=== PATIENT | male | born 1985 | race Caucasian/White ===

== ENCOUNTER 2020-02-08 08:57 | Emergency (ER) | payer SELFPAY ==
[2020-02-08 09:08] VITALS: BP 143/87; PULSE 93; RESP 18; TEMP 37.3; O2SAT 96; BMI 45.1
--- NOTE | 2020-02-08 09:08 | ECG_ITS ---
Test Reason : CHESTPAIN Blood Pressure : / mmHG Vent. Rate : 081 BPM Atrial Rate : 081 BPM P-R Int : 146 ms QRS Dur : 096 ms QT Int : 372 ms P-R-T Axes : 031 037 037 degrees QTc Int : 432 ms Normal sinus rhythm Normal ECG No previous ECGs available Referred By: Judie Ybarra Electronically Signed By:SALIMA CERVANTES MD
--- NOTE | 2020-02-08 09:08 | XR_ITS ---
EXAMINATION: XR CHEST CLINICAL INFORMATION: Pain COMPARISON: None TECHNIQUE: Frontal view of the chest was obtained. FINDINGS: The cardiac and mediastinal contours are normal. There is slight elevation of the right hemidiaphragm. The lungs are clear. There is no pleural effusion or pneumothorax. Bony structures are unremarkable. XR/XR chest 1V IMPRESSION: Elevated right hemidiaphragm. Otherwise unremarkable exam.
--- NOTE | 2020-02-08 09:10 | ED_ITS ---
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) Pain location: left chest Pain radiation: none Severity: moderate Quality: tightness Relieving factors: nothing Exacerbating factors: movement Associated symptoms: diaphoresis Treatment prior to arrival: none Related Data Previous Rx's Medication Instructions Recorded alcohol swabs [Alcohol Pads] 1 pad TOPICAL TID #200 ea 02/08/20 blood sugar diagnostic [FreeStyle #10 ea 02/08/20 Lite Strips] blood-glucose meter [FreeStyle #1 ea 02/08/20 Lite Meter] lancets [FreeStyle Lancets] #100 ea 02/08/20 metformin 500 mg PO BID #60 tab 02/08/20 Allergies Allergy/AdvReac Type Severity Reaction Status Date / Time No Known Allergies Allergy Verified 02/08/20 09:07 Review of Systems Review of Systems: Constitutional : No Weight loss, No Fever, No Chills, pos sweats ENT/Mouth : No sore throat, No Rhinorrhea Eyes: No Eye Pain, No Swelling Cardiovascular : pos Chest Pain, no SOB, no Dyspnea on Exertion, No Orthopnea, No Edema, No Palpitations Respiratory : No Cough, No Sputum Gastrointestinal : no Nausea, No Vomiting, No Diarrhea, No abdominal Pain, No Hematochezia, No Melena Genitourinary : No Dysuria, No Urinary Frequency Musculoskeletal : No joint pain, No Myalgias, No Joint Swelling Skin : No Skin Lesions, No rash Neuro : No Weakness, No Numbness, No Dizziness, No Headache Psych : No Anxiety/Panic, No Depression Heme/Lymph: No Bruising, No Lymphadenopathy Endocrine : No Polyuria, No Polydipsia All other systems reviewed and are negative [facility] Past Medical History Attestation statement: The following information was validated with the patient. Medical History (Updated 02/08/20 @ 13:00 by Judie Ybarra DO) No active medical problems Social History Social History (Updated 02/08/20 @ 09:10 by Judie Ybarra DO) Alcohol intake: never Smoking Status: Current every day smoker Use of substances other than those prescribed or required for medical reasons: Yes Substance Use Type: Marijuana Substance Use Frequency: Daily Advance Directives: No Advance Directives Information Provided: No Physical Exam Vital Signs: Vital Signs: Last Vital Signs Temp 98.3 F 02/08/20 11:19 Pulse 77 02/08/20 11:19 Resp 20 02/08/20 11:19 BP 155/85 H 02/08/20 11:19 Pulse Ox 97 02/08/20 11:19 Body Mass Index 45.1 Appearance: Alert. Oriented X3. No acute distress. Eyes: Pupils equal, round and reactive to light. ENT: Pharynx normal. Neck: Normal inspection. Neck supple. CVS: Normal heart rate and rhythm. Pulses normal. Respiratory: No respiratory distress. Breath sounds normal. Abdomen: Soft and nontender. Skin: Skin warm and dry. Normal skin color. Normal skin turgor. Extremities: No lower extremity edema. No calf ttp Neuro: Oriented X 3. No motor deficit. No sensory deficit. 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 Lab Data Result diagrams: 02/08/20 09:29 02/08/20 09:29 Labs: Lab Results 02/08/20 02/08/20 02/08/20 Range/Units 09:29 09:29 09:29 WBC 10.7 (4.8-10.8) X10*3/uL RBC 5.42 (4.60-5.80) X10*6/uL Hgb 15.7 (14.0-18.0) g/dl Hct 46.9 (42-52) % MCV 86.5 (80-98) fL MCH 29.0 (27.0-33.0) pg MCHC 33.5 (31.0-36.0) g/dl RDW 12.3 (11.0-16.0) % Plt Count 350 (160-400) X10*3/uL MPV 9.9 (9.4-12.4) fL Immature Gran % (Auto) 0.4 (0.0-0.4) % Neut % (Auto) 77.1 H (45-73) % Lymph % (Auto) 17.7 L (20-40) % [place] % (Auto) 3.5 (2-11) % Eos % (Auto) 0.7 (0-4) % Baso % (Auto) 0.6 (0-2) % Lymph # (Auto) 1.9 (1.2-4.9) X10*3/uL [place] # (Auto) 0.4 (0.1-1.2) X10*3/uL Eos # (Auto) 0.1 (0.0-0.4) X10*3/uL Baso # (Auto) 0.1 (0.0-0.2) X10*3/uL Abs Immat Gran (auto) 0.04 H (0.00-0.03) X10*3/uL Absolute Neuts (auto) 8.3 (2.0-8.3) X10*3/uL Absolute Nucleated RBC 0.000 (0.0-0.012) X10*3/uL Nucleated RBC % (auto) 0.0 (0.0-0.2) /100WBC Hold Blue Top Sodium (135-145) mmol/L Potassium (3.3-5.1) mmol/l Chloride (96-108) mmol/L Carbon Dioxide (22-29) mmol/L Anion Gap (12-20) BUN (9-16) mg/dL Creatinine (0.5-1.4) mg/dL Estim Creat Clear Calc Estimated GFR Random Glucose (60-115) mg/dL Estimat Average Glucose 292 mg/dL Hemoglobin A1c % 11.8 % Calcium (8.4-10.2) mg/dL Magnesium (1.6-2.6) mg/dL Total Bilirubin (0.0-1.0) mg/dL Direct Bilirubin (0.0-0.5) mg/dL AST (5-37) U/L ALT (0-40) U/L Alkaline Phosphatase (39-117) U/L Troponin I High Sens (<3.5-35.0) ng/L B-Natriuretic Peptide 10 (<100) pg/mL Total Protein (6.5-8.0) g/dL Albumin (3.5-5.0) g/dL Lipase (8-78) U/L 02/08/20 02/08/20 02/08/20 Range/Units 09:29 09:29 09:29 WBC (4.8-10.8) X10*3/uL RBC (4.60-5.80) X10*6/uL Hgb (14.0-18.0) g/dl Hct (42-52) % MCV (80-98) fL MCH (27.0-33.0) pg MCHC (31.0-36.0) g/dl RDW (11.0-16.0) % Plt Count (160-400) X10*3/uL MPV (9.4-12.4) fL Immature Gran % (Auto) (0.0-0.4) % Neut % (Auto) (45-73) % Lymph % (Auto) (20-40) % [place] % (Auto) (2-11) % Eos % (Auto) (0-4) % Baso % (Auto) (0-2) % Lymph # (Auto) (1.2-4.9) X10*3/uL [place] # (Auto) (0.1-1.2) X10*3/uL Eos # (Auto) (0.0-0.4) X10*3/uL Baso # (Auto) (0.0-0.2) X10*3/uL Abs Immat Gran (auto) (0.00-0.03) X10*3/uL Absolute Neuts (auto) (2.0-8.3) X10*3/uL Absolute Nucleated RBC (0.0-0.012) X10*3/uL Nucleated RBC % (auto) (0.0-0.2) /100WBC Hold Blue Top SEE NOTE Sodium 134 L (135-145) mmol/L Potassium 4.4 (3.3-5.1) mmol/l Chloride 101 (96-108) mmol/L Carbon Dioxide 23 (22-29) mmol/L Anion Gap 14 (12-20) BUN 8 L (9-16) mg/dL Creatinine 0.75 (0.5-1.4) mg/dL Estim Creat Clear Calc 196.2 Estimated GFR > 60 Random Glucose 336 H (60-115) mg/dL Estimat Average Glucose mg/dL Hemoglobin A1c % % Calcium 8.5 (8.4-10.2) mg/dL Magnesium 1.8 (1.6-2.6) mg/dL Total Bilirubin 0.4 (0.0-1.0) mg/dL Direct Bilirubin 0.2 (0.0-0.5) mg/dL AST 26 (5-37) U/L ALT 42 H (0-40) U/L Alkaline Phosphatase 105 (39-117) U/L Troponin I High Sens < 3.5 (<3.5-35.0) ng/L B-Natriuretic Peptide (<100) pg/mL Total Protein 7.1 (6.5-8.0) g/dL Albumin 4.1 (3.5-5.0) g/dL Lipase 108 H (8-78) U/L 12/ Range/Units 12:01 WBC (4.8-10.8) X10*3/uL RBC (4.60-5.80) X10*6/uL Hgb (14.0-18.0) g/dl Hct (42-52) % MCV (80-98) fL MCH (27.0-33.0) pg MCHC (31.0-36.0) g/dl RDW (11.0-16.0) % Plt Count (160-400) X10*3/uL MPV (9.4-12.4) fL Immature Gran % (Auto) (0.0-0.4) % Neut % (Auto) (45-73) % Lymph % (Auto) (20-40) % [place] % (Auto) (2-11) % Eos % (Auto) (0-4) % Baso % (Auto) (0-2) % Lymph # (Auto) (1.2-4.9) X10*3/uL [place] # (Auto) (0.1-1.2) X10*3/uL Eos # (Auto) (0.0-0.4) X10*3/uL Baso # (Auto) (0.0-0.2) X10*3/uL Abs Immat Gran (auto) (0.00-0.03) X10*3/uL Absolute Neuts (auto) (2.0-8.3) X10*3/uL Absolute Nucleated RBC (0.0-0.012) X10*3/uL Nucleated RBC % (auto) (0.0-0.2) /100WBC Hold Blue Top Sodium (135-145) mmol/L Potassium (3.3-5.1) mmol/l Chloride (96-108) mmol/L Carbon Dioxide (22-29) mmol/L Anion Gap (12-20) BUN (9-16) mg/dL Creatinine (0.5-1.4) mg/dL Estim Creat Clear Calc Estimated GFR Random Glucose (60-115) mg/dL Estimat Average Glucose mg/dL Hemoglobin A1c % % Calcium (8.4-10.2) mg/dL Magnesium (1.6-2.6) mg/dL Total Bilirubin (0.0-1.0) mg/dL Direct Bilirubin (0.0-0.5) mg/dL AST (5-37) U/L ALT (0-40) U/L Alkaline Phosphatase (39-117) U/L Troponin I High Sens < 3.5 (<3.5-35.0) ng/L B-Natriuretic Peptide (<100) pg/mL Total Protein (6.5-8.0) g/dL Albumin (3.5-5.0) g/dL Lipase (8-78) U/L ECG Data ECG #1: Attestation: I personally reviewed and interpreted this ECG as follows: ECG interpretation date: 02/08/20 ECG interpretation time: 09:25 Interpretation: Rate: 81 Rhythm: NSR [place]: normal Normal P waves. Normal CANDIE. Normal QRS complex. ST T wave : normal qTC: normal prior studies: no acute ischemia The study has been interpreted contemporaneously by me. . Discharge Plan Discharge Clinical Impression: Chest pain Qualifiers: Chest pain type: unspecified Qualified Code(s): R07.9 - Chest pain, unspecified Diabetes Qualifiers: Diabetes mellitus type: type 2 Diabetes mellitus superintendent terminal insulin use: without superintendent terminal use Diabetes mellitus complication status: without complication Qualified Code(s): E11.9 - Type 2 diabetes mellitus without complications Patient Disposition: Home, Self-Care Instructions: Chest Pain (ED), Diabetes and Nutrition (ED) Additional Instructions: return to ED for any worsening symptoms or concerns Prescriptions: New metformin 500 mg tablet 500 mg PO BID Qty: 60 RF: 2 alcohol swabs [Alcohol Pads] Pads, Medicated 1 pad topical TID Qty: 200 RF: 0 (DME) blood-glucose meter [FreeStyle Lite Meter] Kit See Rx Instructions .ROUTE .MEDSUPPLY Qty: 1 RF: 0 (DME) lancets [FreeStyle Lancets] 28 gauge misc See Rx Instructions .ROUTE .MEDSUPPLY Qty: 100 RF: 2 (DME) FreeStyle Lite Strips Strip See Rx Instructions .ROUTE .MEDSUPPLY Qty: 10 RF: 3 Referrals: Wally Milner MD [Physician] - 2 weeks (any provider to be seen in the next two weeks) Stand Alone Forms: Work/School Release
[2020-02-08] MEDS: Aspirin 81 MG TAB.CHEW PO (09:34)
[2020-02-08 09:41] LABS: MANUAL DIFF FLAG NO
[2020-02-08 09:42] LABS: Basophils Absolute Auto 0.1 X10*3/uL (0.0-0.2); Basophils Percent Auto 0.6 % (0-2); Eosinophils Absolute Auto 0.1 X10*3/uL (0.0-0.4); Eosinophils Percent Auto 0.7 % (0-4); Hematocrit 46.9 % (42-52); Hemoglobin 15.7 g/dl (14.0-18.0); Imm Gran Abs Auto 0.04 X10*3/uL (0.00-0.03); Imm Gran Pct Auto 0.4 % (0.0-0.4); Lymphocytes Absolute Auto 1.9 X10*3/uL (1.2-4.9); Lymphocytes Percent Auto 17.7 % (20-40); Mean Corpuscular HGB Conc 33.5 g/dl (31.0-36.0); Mean Corpuscular Volume 86.5 fL (80-98); Mean Platelet Volume 9.9 fL (9.4-12.4); Monocytes Absolute Auto 0.4 X10*3/uL (0.1-1.2); Monocytes Percent Auto 3.5 % (2-11); Neutrophils Absolute Auto 8.3 X10*3/uL (2.0-8.3); Neutrophils Percent Auto 77.1 % (45-73); Platelet Count 350 X10*3/uL (160-400); Red Blood Count 5.42 X10*6/uL (4.60-5.80); Red Cell Distribution Width 12.3 % (11.0-16.0); White Blood Count 10.7 X10*3/uL (4.8-10.8)
[2020-02-08 10:11] LABS: Alanine Aminotransferase 42 U/L (0-40); Albumin Level 4.1 g/dL (3.5-5.0); Alkaline Phosphatase 105 U/L (39-117); Anion Gap 14 (12-20); Aspartate Amino Transferase 26 U/L (5-37); Bilirubin Direct 0.2 mg/dL (0.0-0.5); Bilirubin Total 0.4 mg/dL (0.0-1.0); Blood Urea Nitrogen 8 mg/dL (9-16); Calcium 8.5 mg/dL (8.4-10.2); Carbon Dioxide 23 mmol/L (22-29); Chloride 101 mmol/L (96-108); Creatinine Clr Calc Pharmacy 196.2; Estimated Glomerular Filt Rate > 60; Glucose Random 336 mg/dL (60-115); Magnesium 1.8 mg/dL (1.6-2.6); Potassium 4.4 mmol/l (3.3-5.1); Sodium 134 mmol/L (135-145); Total Protein 7.1 g/dL (6.5-8.0)
[2020-02-08 10:14] LABS: B Type Natriuretic Peptide 10 pg/mL (<100); Troponin-I High Sensitivity < 3.5 ng/L (<3.5-35.0)
[2020-02-08 10:38] LABS: Lipase 108 U/L (8-78)
[2020-02-08 10:40] LABS: Estimated Average Glucose 292 mg/dL; Hemoglobin A1c % 11.8 %
[2020-02-08 11:19] VITALS: BP 155/85; PULSE 77; RESP 20; TEMP 36.8; O2SAT 97
--- NOTE | 2020-02-08 11:37 | PC.NURSE ---
Patient a&ox3, surveillance system monitor nsr 70s, patient states he no longer has chest pain and has no nausea which he had at work, patient is currently watching tv and waiting troponin redraw, will continue to monitor.
[2020-02-08 12:45] LABS: Troponin-I High Sensitivity < 3.5 ng/L (<3.5-35.0)
[2020-02-08 13:49] LABS: COVID-19 Test Negative (Negative)
== END 2020-02-08 14:43 | disposition home or self-care (01) ==
PROVIDERS: Emergency Provider Emergency Medicine
DX: R07.9 Chest pain, unspecified (principal); Z20.828 Contact with and (suspected) exposure to other viral communicable diseases; E11.9 Type 2 diabetes mellitus without complications; Z79.84 Long term (current) use of oral hypoglycemic drugs; F17.200 Nicotine dependence, unspecified, uncomplicated
CPT/HCPCS: 36415; 71045; 80048; 80076; 83036; 83690; 83735; 83880; 84484; 85025; 87635; 93005; 99284

== ENCOUNTER 2020-04-06 13:06 | Outpatient (REF) | payer SELFPAY ==
[2020-04-06 13:50] LABS: Amphetamine Screen Urine Not Detected (Not Detect); Cannabinoid Screen Urine POSITIVE (Not Detect); Cocaine Screen Urine Not Detected (Not Detect); Opiate Screen Urine Not Detected (Not Detect); Phencyclidine Screen Urine Not Detected (Not Detect)
== END 2020-04-06 13:07 | disposition home or self-care (01) ==
LOC: HO.LNP 13:06
PROVIDERS: Visit Provider Internal Medicine
DX: Z02.1 Encounter for pre-employment examination (principal)
CPT/HCPCS: 80307

== ENCOUNTER 2020-04-19 15:56 | Emergency (ER) | payer OTHER, SELFPAY ==
[2020-04-19 16:15] VITALS: BP 134/85; PULSE 99; RESP 16; TEMP 37.3; O2SAT 100; BMI 40.8
--- NOTE | 2020-04-19 16:58 | ED.SKABFB ---
HPI - Skin/Abscess/Foreign Bdy General Chief complaint: Skin/Abscess/Foreign Body Stated complaint: Abscess Time Seen by Provider: 04/19/20 16:58 History of Present Illness HPI narrative: Patient complains of painful red area on right forearm that is been there for a long time but has gotten worse in the past couple of days and now when he presses on it a small amount of pus comes out through a small hole at the base of the red area, no fever no chills, he did have an abscess drained in the same area over year ago Related Data Previous Rx's Medication Instructions Recorded alcohol swabs [Alcohol Pads] 1 pad TOPICAL TID #200 ea 02/08/20 blood sugar diagnostic [FreeStyle #10 ea 02/08/20 Lite Strips] blood-glucose meter [FreeStyle #1 ea 02/08/20 Lite Meter] lancets [FreeStyle Lancets] #100 ea 02/08/20 metformin 500 mg PO BID #60 tab 02/08/20 doxycycline hyclate 100 mg PO BID 7 Days #14 cap 04/19/20 oxycodone-acetaminophen [Percocet] 1 tab PO Q4-6H PRN #10 tab 04/19/20 Allergies Allergy/AdvReac Type Severity Reaction Status Date / Time No Known Allergies Allergy Verified 02/08/20 09:07 Review of Systems Review of Systems: Painful red area to right forearm Denies fever chills dizziness weakness, no red stripe up the arm, no pain in any joints, no difficulty breathing no calf pain no other rash no numbness no weakness [facility] Past Medical History Attestation statement: The following information was validated with the patient. [facility] Narrative: Prior abscess I&D in the exact same spot Source: nursing notes reviewed Medical History (Updated 04/20/20 @ 00:01 by Eri Garces) Diabetes mellitus, type 2 Social History Social History (Updated 02/08/20 @ 09:10 by Judie Ybarra DO) Alcohol intake: never Smoking Status: Current every day smoker Smoked in Last 30 Days: No Use of substances other than those prescribed or required for medical reasons: Yes Substance Use Type: Marijuana Substance Use Frequency: Daily Advance Directives: No Advance Directives Information Provided: Yes Physical Exam Vital Signs: Vital Signs: Last Vital Signs Temp 99.1 F 04/19/20 16:15 Pulse 99 04/19/20 16:15 Resp 16 04/19/20 16:15 BP 134/85 04/19/20 16:15 Pulse Ox 100 04/19/20 16:15 Body Mass Index 40.8 General appearance no acute distress, a and O x3, comfortable and cooperative Head is normocephalic atraumatic Neck is supple Respiratory no distress Extremities the right forearm volar mid forearm has a 2 cm x 2 cm area of redness mild swelling induration and mild tenderness, when pressed a small amount of yellow fluid is expressed from a small punctate area at the base of the inflamed indurated area, arm is neurovascular intact distal there is no lymphangitis Skin no other rashes Neuro no focal deficits Course Course Course Narrative: Right forearm abscess is cleansed with Betadine Anesthesia was initially 10 cc of 1% lidocaine, this was not sufficient as the procedure was very painful so another 5 cc of 1% lidocaine was injected in the area A small incision was made with the discharge of a moderate amount of pus A 2nd small incision was made through the small punctate area from which pus had been expressed prior to the I and D I attempted to break through scar tissue and loculations and the patient asked me to stop as it was very painful despite 15 cc of lidocaine so loculations were not fully broken up and I could not exclude a deeper pocket of pus No packing was placed a dressing was placed and patient will return for wound check Discharge Plan Discharge Clinical Impression: Abscess of skin or subcutaneous tissue Patient Disposition: Home, Self-Care Additional Instructions: Return to ER in 2 days for wound check, if surgeon has an appointment follow with him for recheck Return to ER any time for spreading redness, worse pain and swelling, fever, any worse condition or any concerns I was unable to get to the deeper tissue layers as it was too painful so follow-up with the surgeon if this does not get better is a good idea Prescriptions: New oxycodone-acetaminophen [Percocet] 5-325 mg tablet 1 tab PO Q4-6H PRN (Reason: pain) Qty: 10 RF: 0 doxycycline hyclate 100 mg capsule 100 mg PO BID 7 Days Qty: 14 RF: 0 No Action metformin 500 mg tablet 500 mg PO BID Qty: 60 RF: 2 alcohol swabs [Alcohol Pads] Pads, Medicated 1 pad topical TID Qty: 200 RF: 0 (DME) blood-glucose meter [FreeStyle Lite Meter] Kit See Rx Instructions .ROUTE .MEDSUPPLY Qty: 1 RF: 0 (DME) lancets [FreeStyle Lancets] 28 gauge misc See Rx Instructions .ROUTE .MEDSUPPLY Qty: 100 RF: 2 (DME) FreeStyle Lite Strips Strip See Rx Instructions .ROUTE .MEDSUPPLY Qty: 10 RF: 3 Referrals: Ej Pena MD [Physician] - 2 days (Possible deep left forearm abscess, not sure if fully drained in the ER visit) Stand Alone Forms: Work/School Release Interventions: ED Discharge Assessment Last Done: 04/19/20 19:00 Discharge Date/Time: 04/19/20 19:09
[2020-04-19] MEDS: Lidocaine HCl 1 % MPF 5 ML VIAL SUBCUT ×3 (17:35→18:23)
== END 2020-04-19 19:09 | disposition home or self-care (01) ==
PROVIDERS: Emergency Provider Emergency Medicine
DX: L02.413 Cutaneous abscess of right upper limb (principal)
CPT/HCPCS: 10061; 87071; 87205; 99284

== ENCOUNTER 2020-04-21 09:36 | Emergency (ER) | payer OTHER, SELFPAY ==
[2020-04-21 09:47] VITALS: BP 139/104; PULSE 88; RESP 18; TEMP 36.8; O2SAT 98; BMI 90.1
--- NOTE | 2020-04-21 10:02 | ED_ITS ---
HPI - Skin/Abscess/Foreign Bdy General Chief complaint: Skin/Abscess/Foreign Body Stated complaint: WOUND CHECK Time Seen by Provider: 04/21/20 09:50 Source: patient Mode of arrival: ambulatory Limitations: no limitations History of Present Illness HPI narrative: 34-year-old male with a past history of diabetes here for wound check. The patient was seen here 2 days ago for an abscess of the right arm. He had an I&D was placed on doxycycline. Patient returns today and tells me he is feeling well. No fevers or chills or pain at the site. He is doing warm compresses and taking his antibiotics as prescribed. He was referred to surgery as this is a recurrent problem for him. Patient has not called for an appointment MD complaint: abscess/boil Related Data Previous Rx's Medication Instructions Recorded alcohol swabs [Alcohol Pads] 1 pad TOPICAL TID #200 ea 02/08/20 blood sugar diagnostic [FreeStyle #10 ea 02/08/20 Lite Strips] blood-glucose meter [FreeStyle #1 ea 02/08/20 Lite Meter] lancets [FreeStyle Lancets] #100 ea 02/08/20 metformin 500 mg PO BID #60 tab 02/08/20 doxycycline hyclate 100 mg PO BID 7 Days #14 cap 04/19/20 oxycodone-acetaminophen [Percocet] 1 tab PO Q4-6H PRN #10 tab 04/19/20 Allergies Allergy/AdvReac Type Severity Reaction Status Date / Time No Known Allergies Allergy Verified 02/08/20 09:07 Review of Systems Review of Systems: Yes all other systems are reviewed and are negative Constitutional: Constitutional: Reports no additional constitutional com plaints, Denies body ache(s), Denies chills, Denies fever(s), Denies headache(s) and Denies weakness Eyes: Eyes: Reports no additional eye complaints and Denies change in vision ENT: Reports system reviewed and no additional complaints, except as documented, Denies dizziness, Denies headache(s), Denies nasal congestion, Denies nasal discharge and Denies neck pain Cardiovascular: Cardiovascular: Reports no additional cardiovascular complaints, Denies chest pain, Denies leg edema and Denies dyspnea Respiratory: Respiratory: Reports no additional respiratory complaints, Denies cough and Denies dyspnea Gastrointestinal: Gastrointestinal: Reports no additional gastrointestinal complaints, Denies abdominal pain, Denies diarrhea, Denies nausea and Denies vomiting Genitourinary: Genitourinary: Denies urinary incontinence Musculoskeletal: Musculoskeletal: Reports no additional musculoskeletal complaints, Denies back pain, Denies arthralgias, Denies joint swelling, Denies neck pain, Denies numbness and Denies tingling Integumentary/Breasts: Skin/Breast: Reports system reviewed and no additional complaints, except as docu, Reports furuncle and Denies rash Neurologic: Reports system reviewed and no additional complaints, except as documented, Denies Abnormal speech present, Denies dizziness, Denies headache(s), Denies numbness, Denies tingling and Denies weakness PMFSH Past Medical History Attestation statement: The following information was validated with the patient. Source: old records reviewed and nursing notes reviewed Medical History Diabetes mellitus, type 2 Social History Social History Alcohol intake: never Smoking Status: Current every day smoker Substance Use Type: Marijuana Advance Directives: No Advance Directives Information Provided: Yes Physical Exam Vital Signs: Vital Signs: Last Vital Signs Temp 98.2 F 04/21/20 09:47 Pulse 88 04/21/20 09:47 Resp 18 04/21/20 09:47 BP 139/104 H 04/21/20 09:47 Pulse Ox 98 04/21/20 09:47 Body Mass Index 90.1 Const: General: cooperative, healthy appearing, comfortable and no acute distress Orientation/consciousness: patient oriented x3 Limitations: no limitations HENMT: Head: Yes normal to inspection Ears: hearing grossly normal bilaterally General nose exam: Normal external nose present Face and sinus: Yes normal facial exam Mouth: Normal oral and palatal mucosa present Throat: Yes posterior oropharynx normal Eyes: General: appearance normal, both eyes and all related structures Pupils: Equal, round and reactive pupils present Neck: Neck: Yes normal visual inspection Chest: Chest palpation & inspection: normal inspection of the chest Resp: Effort & Inspection: normal respiratory effort Auscultation: clear to auscultation bilaterally Cardio: Rate: regular rate Rhythm: regular rhythm Peripheral pulses: Peripheral pulses 2+ throughout GI: Inspection: Yes normal to inspection Palpation (GI): Soft to palpation and nontender Auscultation: normal bowel sounds Back/Spine/Pelvis: Thoracic/Lumbar Spine: thoracic and lumbar spine normal to inspection Skin: Other: To the right AC there is a small area of erythema with drainage from the incision site. There is no palpable fluctuance or induration around the site. Full range of motion of distal and proximal joints. Neurovascular intact distally. General skin exam: no rashes or lesions noted Neuro: General: patient oriented x3, no focal motor deficits and normal sensation to monofilament Cranial nerves: Yes Equal, round and reactive pupils present Cognition (Neuro): normal cognition Speech: No Abnormal speech present Gait exam (Neuro): Normal gait present Motor exam (neuro): 5/5 motor strength present throughout Extrem: General: Yes normal to inspection Course Course Course Narrative: Healing abscess to right AC. Site appears well the patient has no additional symptoms. Recommend continuing warm compresses, topical antibiotics and oral antibiotics as prescribed. Reviewed worrisome signs and symptoms and when to return to the emergency department. Comfortable discharge home. Discharge Plan Discharge Clinical Impression: Abscess of skin or subcutaneous tissue Qualifiers: Site of cutaneous abscess: extremity Site of cutaneous abscess of extremity: upper extremity Laterality: right Qualified Code(s): L02.413 - Cutaneous abscess of right upper limb Patient Disposition: Home, Self-Care Instructions: Abscess (ED) Additional Instructions: Warm compresses four times daily Topical antibiotic ointment as discussed Continue antibiotics Follow-up with surgeon as discussed Prescriptions: No Action metformin 500 mg tablet 500 mg PO BID Qty: 60 RF: 2 alcohol swabs [Alcohol Pads] Pads, Medicated 1 pad topical TID Qty: 200 RF: 0 (DME) blood-glucose meter [FreeStyle Lite Meter] Kit See Rx Instructions .ROUTE .MEDSUPPLY Qty: 1 RF: 0 (DME) lancets [FreeStyle Lancets] 28 gauge misc See Rx Instructions .ROUTE .MEDSUPPLY Qty: 100 RF: 2 (DME) FreeStyle Lite Strips Strip See Rx Instructions .ROUTE .MEDSUPPLY Qty: 10 RF: 3 oxycodone-acetaminophen [Percocet] 5-325 mg tablet 1 tab PO Q4-6H PRN (Reason: pain) Qty: 10 RF: 0 doxycycline hyclate 100 mg capsule 100 mg PO BID 7 Days Qty: 14 RF: 0 Referrals: Physician,None [Primary Care Provider] - 2 days Interventions: ED Discharge Assessment Last Done: 04/21/20 10:10 Discharge Date/Time: 04/21/20 10:11
== END 2020-04-21 10:11 | disposition home or self-care (01) ==
PROVIDERS: Emergency Provider Emergency Medicine Emergency Medical Services
DX: L02.413 Cutaneous abscess of right upper limb (principal); E11.9 Type 2 diabetes mellitus without complications
CPT/HCPCS: 99282; 99283

== ENCOUNTER 2020-05-10 17:41 | Emergency (ER) | payer OTHER, SELFPAY ==
[2020-05-10 21:26] VITALS: BP 155/73; PULSE 77; RESP 16; TEMP 36.4; O2SAT 97; BMI 40.8
[2020-05-10 22:12] VITALS: BP 150/82; PULSE 73; RESP 18; TEMP 36.6
--- NOTE | 2020-05-10 23:25 | ED_ITS ---
HPI - Skin/Abscess/Foreign Bdy General Chief complaint: Skin/Abscess/Foreign Body Stated complaint: ABSCESS Time Seen by Provider: 05/10/20 23:17 Source: patient Mode of arrival: ambulatory Limitations: no limitations History of Present Illness HPI narrative: Patient comes emergency room complaining of a growing abscess in the antecubital fossa. Patient states he was seen here on April 21, had an abscess drained, was taking doxycycline. Patient states that his skin did improve, however he was asked to follow up with surgery as an outpatient but he did not follow-up due to insurance issues. Patient states that 2 days ago he saw that the abscess is regrowing. Patient denies fever or chills. Patient also known to be diabetic, patient states that he is running out of his metformin and is requesting a refill until he is seen by his PCP which he is working on getting an appointment. Related Data Previous Rx's Medication Instructions Recorded alcohol swabs [Alcohol Pads] 1 pad TOPICAL TID #200 ea 02/08/20 blood sugar diagnostic [FreeStyle #10 ea 02/08/20 Lite Strips] blood-glucose meter [FreeStyle #1 ea 02/08/20 Lite Meter] lancets [FreeStyle Lancets] #100 ea 02/08/20 metformin 500 mg PO BID #60 tab 02/08/20 doxycycline hyclate 100 mg PO BID 7 Days #14 cap 04/19/20 oxycodone-acetaminophen [Percocet] 1 tab PO Q4-6H PRN #10 tab 04/19/20 metformin 500 mg PO BID #60 tab 05/11/20 sulfamethoxazole-trimethoprim 1 tab PO BID #14 tab 05/11/20 [Bactrim DS] Allergies Allergy/AdvReac Type Severity Reaction Status Date / Time No Known Allergies Allergy Verified 05/10/20 21:32 Review of Systems Review of Systems: Constitutional : No Weight loss, No Fever, No Chills, No Night Sweats, No Fatigue, No Malaise ENT/Mouth : No Hearing loss, No Ear Pain, No Nasal Congestion, No Sinus Pain, No Hoarseness, No sore throat, No Rhinorrhea, No Swallowing Difficulty Eyes: No Eye Pain, No Swelling, No Redness, No Foreign Body, No Discharge, No Vision Changes Cardiovascular : No Chest Pain, No SOB, No Dyspnea on Exertion, No Orthopnea, No Edema, No Palpitations Respiratory : No Cough, No Sputum, No Wheezing, No Smoke Exposure, No Dyspnea Gastrointestinal : No Nausea, No Vomiting, No Diarrhea, No Constipation, No abdominal Pain, No Hematochezia, No Melena Genitourinary : no irregular bleeding, No Dysuria, No Urinary Frequency, No Hematuria, No Urinary Incontinence, No Urgency, No Flank Pain, No Urinary Flow Changes, No Hesitancy Musculoskeletal : No joint pain, No Myalgias, No Joint Swelling Skin : Small abscess in the right antecubital fossa Neuro : No Weakness, No Numbness, No Paresthesias, No Loss of Consciousness, No Dizziness, No Headache Psych : No Anxiety/Panic, No Depression, No SI/HI/AH/VH, No Social Issues, Heme/Lymph: No Bruising, No Bleeding,No Lymphadenopathy Endocrine : No Polyuria, No Polydipsia, No Temperature Intolerance PMF Past Medical History Medical History Diabetes mellitus, type 2 Social History Social History Alcohol intake: never Smoking Status: Current every day smoker Substance Use Type: Marijuana Advance Directives: No Advance Directives Information Provided: Yes Physical Exam Vital Signs: Vital Signs: Last Vital Signs Temp 97.8 F 05/10/20 22:12 Pulse 73 05/10/20 22:12 Resp 18 05/10/20 22:12 BP 150/82 H 05/10/20 22:12 Pulse Ox 97 05/10/20 21:26 Body Mass Index 40.8 Appearance: Alert. Oriented X3. No acute distress. Eyes: Pupils equal, round and reactive to light. ENT: Pharynx normal. Neck: Normal inspection. Neck supple. No lymph nodes noted. No crepitus CVS: Normal heart rate and rhythm. Pulses normal. Normal S1 and S2 Respiratory: No respiratory distress. Breath sounds normal. No Wheezing. No rales Abdomen: Soft and nontender. No rigidity. No distention. good BS x4 Skin: Skin warm and dry. 1 cm x 1 cm abscess in the right antecubital fossa Extremities: No lower extremity edema. No lower extremity edema. No Lacerations. No Rash Neuro: Oriented X 3. No motor deficit. No sensory deficit. Moving all extermities. No slurred speech. Course Course Course Narrative: Patient tolerated well the I&D, patient has normal radial pulses bilaterally. Able to flex and extend fingers of hands, vascular neurol ogical exam and right upper extremity intact after the procedure. Patient requesting refill for metformin. Patient received the 1st dose of antibiotic here, Bactrim. Rx sent to the pharmacy Patient has recurrence of the abscess in the same spot. I discussed with the patient that if this keeps reoccurring, he does need to follow up with surgery for marsupialization as indicated in his prior visit. Patient agrees with plan. Procedures Abscess I/D Site: upper extremity (Right arm) Side (if applicable): right Local Anesthetic: lidocaine 2% Amount of anesthesia used (mL): 3 Technique: incised with blade Amount of fluid expressed (mL): 4 Sent for culture/gram staining?: No Irrigation: No Packing used?: none Complications: other Discharge Plan Discharge Clinical Impression: Abscess of skin or subcutaneous tissue Qualifiers: Site of cutaneous abscess: extremity Site of cutaneous abscess of extremity: upper extremity Laterality: right Qualified Code(s): L02.413 - Cutaneous abscess of right upper limb Patient Disposition: Home, Self-Care Instructions: Abscess (ED) Additional Instructions: Please follow-up with your primary care physician tomorrow. If you have any worsening or new symptoms, please return to the emergency room or call 911 Prescriptions: New sulfamethoxazole-trimethoprim [Bactrim DS] 800-160 mg tablet 1 tab PO BID Qty: 14 RF: 0 metformin 500 mg tablet 500 mg PO BID Qty: 60 RF: 0 No Action metformin 500 mg tablet 500 mg PO BID Qty: 60 RF: 2 alcohol swabs [Alcohol Pads] Pads, Medicated 1 pad topical TID Qty: 200 RF: 0 (DME) blood-glucose meter [FreeStyle Lite Meter] Kit See Rx Instructions .ROUTE .MEDSUPPLY Qty: 1 RF: 0 (DME) lancets [FreeStyle Lancets] 28 gauge misc See Rx Instructions .ROUTE .MEDSUPPLY Qty: 100 RF: 2 (DME) FreeStyle Lite Strips Strip See Rx Instructions .ROUTE .MEDSUPPLY Qty: 10 RF: 3 oxycodone-acetaminophen [Percocet] 5-325 mg tablet 1 tab PO Q4-6H PRN (Reason: pain) Qty: 10 RF: 0 doxycycline hyclate 100 mg capsule 100 mg PO BID 7 Days Qty: 14 RF: 0 Referrals: Ej Pena MD [Physician] - 2 days Stand Alone Forms: Work/School Release
== END 2020-05-11 00:47 | disposition home or self-care (01) ==
PROVIDERS: Emergency Provider Emergency Medicine
DX: L02.413 Cutaneous abscess of right upper limb (principal); Z79.899 Other long term (current) drug therapy
CPT/HCPCS: 10060; 99283

== ENCOUNTER → 2020-05-25 10:26 | Outpatient (BNVA) | payer OTHER, SELFPAY | PROVIDERS: Visit Provider Surgery ==

== ENCOUNTER 2020-06-14 14:08 | Outpatient (REF) | payer OTHER, SELFPAY ==
[2020-06-14 13:29] VITALS: BP 154/81; PULSE 99; RESP 19; TEMP 36.8; O2SAT 97; BMI 40.8
--- NOTE | 2020-06-14 14:39 | W.PM.OPN ---
Operative Note Operative Note Date of Service: 06/14/20 Narrative: Preop diagnosis: Epidermal cyst, right forearm Postop diagnosis: Epidermal cyst, right forearm Procedure: Excision of epidermal cyst, right forearm, under local anesthesia Surgeon: Ej Pena MD The patient is a 34-year-old male with note of a recurrent area of pain swelling and tenderness and drainage on the right forearm near the antecubital fossa. Examination shows cystic induration measuring about 1.8 cm in diameter, consistent with a ruptured epidermal cyst. He wanted to proceed with excision. He understood the technique of excision under local anesthesia and he was aware of the risks, benefits, and alternatives. He was brought to the minor procedure room. He was placed supine. The area of the cyst was prepped and draped. Lidocaine 1% was used for local anesthesia. An elliptical incision was made on the skin around this lesion using a blade 15. This was carried down through the full-thickness of the skin and part of the subcutaneous layer to excise this entire indurated area. This was sent as specimen. I closed the incision with full-thickness nylon 3 0 interrupted sutures. Steri-Strips and dressings were applied He tolerated procedure well. There were no complications noted. Estimated blood loss about 3 cc. He was given wound care instructions and will be seen in the office for removal sutures.
== END 2020-06-14 14:09 | disposition home or self-care (01) ==
LOC: HO.MS 14:08
PROVIDERS: Visit Provider Surgery
PROC: (CPT 11402; principal; 2020-06-14 14:10)
DX: L72.0 Epidermal cyst (principal); E11.9 Type 2 diabetes mellitus without complications; Z79.84 Long term (current) use of oral hypoglycemic drugs
CPT/HCPCS: 11402; 88304

== ENCOUNTER → 2020-06-22 11:45 | Outpatient (BNVA) | payer OTHER, SELFPAY | PROVIDERS: PCP Internal Medicine; Visit Provider Surgery | DX: Z48.817 Encounter for surgical aftercare following surgery on the skin and subcutaneous tissue (principal); Z87.2 Personal history of diseases of the skin and subcutaneous tissue | CPT/HCPCS: 99212 ==

== ENCOUNTER → 2020-07-19 09:24 | Outpatient (BNVA) | payer OTHER, SELFPAY | PROVIDERS: PCP Internal Medicine; Referring Provider Internal Medicine; Visit Provider Surgery | DX: L72.0 Epidermal cyst (principal); L08.9 Local infection of the skin and subcutaneous tissue, unspecified | CPT/HCPCS: 99212 ==